=== PATIENT | female | born 1985 | race Caucasian/White ===

== ENCOUNTER 2016-06-27 09:40 | Inpatient (IN) | payer OTHER ==
[~2016-06-27] VITALS: Ht 156 cm; Wt 75.3 kg
[2016-06-27] MEDS ORDERED: RINGERS SOLUTION,LACTATED 1,000 ML IV ONE ×2 (09:41→12:08)
[2016-06-27] MEDS ORDERED: METOCLOPRAMIDE HCL 5 MG/ML 2 ML VIAL IVP ONE (09:45)
[2016-06-27] MEDS ORDERED: CITRIC ACID/SODIUM CITRATE 30 ML SOLUTION UDCUP PO ONE (09:45)
[2016-06-27 10:20] VITALS: BP 127/70
[2016-06-27] MEDS ORDERED: FERR-89 PO (10:24)
[2016-06-27] MEDS ORDERED: PREN1TAB80 PO (10:24)
[2016-06-27] MEDS ORDERED: CALC-51 PO (10:24)
[2016-06-27 10:40] LABS: GLUCOSE,POINT OF CARE 82 MG/DL (70-110)
[2016-06-27 10:43] LABS: BASOPHILS % (AUTO) 0.3 % (0.0-2.0); EOSINOPHILS % (AUTO) 0.5 % (1.0-6.0); HEMATOCRIT 37.2 % (36-46); HEMOGLOBIN 12.6 g/dL (12.0-16.0); LYMPHOCYTES # (AUTO) 1.5 K/uL (1.0-4.8); LYMPHOCYTES % (AUTO) 17.4 % (22.0-44.0); MEAN CORPUSCULAR HEMOGLOBIN 34.4 pg (26.0-34.0); MEAN CORPUSCULAR HGB CONC 33.8 G/dL (31.0-37.0); MEAN CORPUSCULAR VOLUME 102 fL (80-100); MONOCYTES # (AUTO) 0.5 K/uL (0.1-1.0); MONOCYTES % (AUTO) 6.2 % (2.0-9.0); NEUTROPHILS # (AUTO) 6.5 K/uL (1.8-7.7); NEUTROPHILS % (AUTO) 75.6 % (40.0-70.0); PLATELET COUNT (AUTO) 141 K/uL (150-450); RED BLOOD CELL COUNT(AUTO) 3.66 MIL/uL (4.00-5.20); RED CELL DISTRIBUTION WIDTH 13.1 % (11.5-14.5); WHITE BLOOD COUNT (AUTO) 8.7 K/uL (4.5-11.0)
[2016-06-27 10:58] LABS: RBC MORPHOLOGY COMMENT ABNORMAL RBC MORPH
[2016-06-27] MEDS ORDERED: INFLUENZA VIRUS VACCINE QVS 2016-17 (3YR+)/PF 60 MCG/0.5 ML SYRINGE IM ONE (12:00)
[2016-06-27] MEDS ORDERED: CeFAZolin 2 GM/DEXTROSE 50 ML IV ONE (12:07)
[2016-06-27] MEDS ORDERED: FentaNYL CITRATE-PF 100 MCG/2 ML VIAL ONE (12:08)
[2016-06-27] MEDS ORDERED: KETAMINE HCL 50 MG/ML 10 ML VIAL ONE (12:08)
[2016-06-27] MEDS ORDERED: MORPHINE SULFATE/PF 0.5 MG/ML 10 ML AMP ONE (12:08)
[2016-06-27] MEDS ORDERED: ACETAMINOPHEN/CODEINE 300-30 MG TABLET PO PRN ×2 (14:00)
[2016-06-27] MEDS ORDERED: LANOLIN 7 GM OINTMENT TP PRN (14:00)
[2016-06-27] MEDS ORDERED: 0.9% SODIUM CHLORIDE 10 ML VIAL IV ONE (14:23)
[2016-06-27] MEDS ORDERED: OXYTOCIN 10 UNITS/ML VIAL IM ONE (14:23)
[2016-06-27] MEDS ORDERED: PHENYLEPHRINE HCL 10 MG/ML VIAL IVP ONE (14:23)
[2016-06-27] MEDS: DEXTROSE 5%-0.45% SODIUM CHL 1,000 ML IV SCH ×2 (17:51→21:42)
[2016-06-27] MEDS ORDERED: ACETAMINOPHEN 1000 MG/ISO-OSM 100 ML IV PRN (18:15)
[2016-06-27] MEDS ORDERED: DiphenhydrAMINE HCL 50 MG/ML VIAL IVP PRN (18:15)
[2016-06-27] MEDS ORDERED: NALOXONE HCL 0.4 MG/ML VIAL IVP PRN (18:15)
[2016-06-27] MEDS ORDERED: NALBUPHINE HCL 10 MG/ML VIAL IVP PRN ×2 (18:15)
[2016-06-27] MEDS ORDERED: ONDANSETRON HCL 4 MG/2 ML VIAL IVP PRN (18:15)
[2016-06-27] MEDS ORDERED: OXYGEN THERAPY IH SCH ×2 (20:00)
[2016-06-28] MEDS: DEXTROSE 5%-0.45% SODIUM CHL 1,000 ML IV SCH ×2 (01:54→06:31)
[2016-06-28] MEDS: IBUPROFEN 800 MG TABLET PO SCH ×3 (06:35→18:49)
[2016-06-28] MEDS: MAGNESIUM HYDROXIDE SUSPENSION 30 ML UDCUP PO SCH ×2 (09:06→21:22)
[2016-06-29] MEDS: IBUPROFEN 800 MG TABLET PO SCH ×4 (01:01→18:23)
[2016-06-29] MEDS: MAGNESIUM HYDROXIDE SUSPENSION 30 ML UDCUP PO SCH (09:10)
[2016-06-29] MEDS ORDERED: NALBUPHINE HCL 10 MG/ML VIAL ONE (17:48)
[2016-06-30] MEDS: IBUPROFEN 800 MG TABLET PO SCH ×2 (01:08→06:47)
[2016-06-30] MEDS ORDERED: ACET1TAB12 PO (10:13)
[2016-06-30] MEDS ORDERED: IBUP-2070 PO (10:15)
[2016-06-30] MEDS ORDERED: DSS100 PO (10:16)
== END 2016-06-30 13:55 | disposition home or self-care (01) | DRG 766 ==
LOC: OBSVTOIN 09:40 → 4S 09:40
PROVIDERS: ADMIT Obstetrics & Gynecology; ATTEND Obstetrics & Gynecology
PROC: 10D00Z1 Extraction of Products of Conception, Low, Open Approach (ICD-10-PCS; principal; 2016-06-27)
DX: O24.420 Gestational diabetes mellitus in childbirth, diet controlled (principal); Z3A.39 39 weeks gestation of pregnancy; Z37.0 Single live birth; Z28.21 Immunization not carried out because of patient refusal
CPT/HCPCS: 82962; 86850; 86900; 86901; 87081; J0131; J0690; J2274; J2300; J2370; J2590; J2765; J3010; J3490; J7120

== ENCOUNTER 2020-02-06 14:40 | Inpatient (IN) | payer OTHER ==
[~2020-02-06] VITALS: Ht 156 cm; Wt 78.9 kg
[~2020-02-06 14:40] MED LIST: ACET-2080 PO; DSS100 PO; IBUP-2070 PO; PREN1TAB80 PO
[2020-02-06] MEDS ORDERED: RINGERS SOLUTION,LACTATED 1,000 ML IV ONE (15:01)
[2020-02-06] MEDS ORDERED: METOCLOPRAMIDE HCL 5 MG/ML 2 ML VIAL IVP ONE (15:15)
[2020-02-06] MEDS ORDERED: CITRIC ACID/SODIUM CITRATE 30 ML SOLUTION UDCUP PO ONE (15:15)
[2020-02-06 15:47] LABS: BASOPHILS % (AUTO) 0.2 % (0.0-2.0); EOSINOPHILS % (AUTO) 0.4 % (1.0-6.0); HEMATOCRIT 41.3 % (36-46); HEMOGLOBIN 14.1 g/dL (12.0-16.0); LYMPHOCYTES # (AUTO) 1.6 K/uL (1.0-4.8); LYMPHOCYTES % (AUTO) 15.5 % (22.0-44.0); MEAN CORPUSCULAR HEMOGLOBIN 34.4 pg (26.0-34.0); MEAN CORPUSCULAR HGB CONC 34.1 G/dL (31.0-37.0); MEAN CORPUSCULAR VOLUME 101 fL (80-100); MONOCYTES # (AUTO) 0.7 K/uL (0.1-1.0); MONOCYTES % (AUTO) 6.4 % (2.0-9.0); NEUTROPHILS # (AUTO) 7.9 K/uL (1.8-7.7); NEUTROPHILS % (AUTO) 77.5 % (40.0-70.0); PLATELET COUNT (AUTO)-OB 137 K/uL (150-450); RED BLOOD CELL COUNT(AUTO) 4.09 MIL/uL (4.00-5.20); RED CELL DISTRIBUTION WIDTH 13.1 % (11.5-14.5)
[2020-02-06] MEDS ORDERED: FentaNYL CITRATE-PF 100 MCG/2 ML VIAL ONE (15:56)
[2020-02-06] MEDS ORDERED: BUPIVACAINE HCL/DEX-WATER/PF 0.75% 2 ML AMP ONE (15:56)
[2020-02-06] MEDS ORDERED: MORPHINE SULFATE/PF 0.5 MG/ML 10 ML AMP ONE (15:56)
[2020-02-06] MEDS ORDERED: ACETAMINOPHEN 1000 MG/ISO-OSM 100 ML IV ONE (15:56)
[2020-02-06] MEDS ORDERED: DEXAMETHASONE SOD PHOS 4 MG/ML VIAL IVP PRN (16:45)
[2020-02-06] MEDS ORDERED: DiphenhydrAMINE HCL 50 MG/ML VIAL IVP PRN ×2 (16:45→17:00)
[2020-02-06] MEDS ORDERED: ONDANSETRON HCL 4 MG/2 ML VIAL IVP PRN ×2 (16:45→17:00)
[2020-02-06] MEDS ORDERED: MORPHINE SULFATE 10 MG/ML SYRINGE IVP PRN (17:00)
[2020-02-06] MEDS ORDERED: FentaNYL CITRATE-PF 100 MCG/2 ML VIAL IVP PRN (17:00)
[2020-02-06] MEDS ORDERED: NALOXONE HCL 0.4 MG/ML VIAL IVP PRN (17:00)
[2020-02-06] MEDS ORDERED: GUM MASTIC/STORAX/MSAL/ALCOHOL LIQUID 0.67 ML VIAL TP ONE (17:06)
[2020-02-06] MEDS ORDERED: OXYTOCIN 30 UNITS/LACT RINGERS 500 ML IV ONE (17:25)
[2020-02-06] MEDS ORDERED: OxyCODONE HCL/ACETAMINOPHEN 5-325 MG TABLET PO PRN ×2 (17:30)
[2020-02-06] MEDS ORDERED: LANOLIN 7 GM OINTMENT TP PRN (17:30)
[2020-02-06] MEDS: RINGERS SOLUTION,LACTATED 1,000 ML IV SCH (19:45)
[2020-02-06] MEDS ORDERED: OXYGEN THERAPY IH SCH ×3 (20:00)
[2020-02-06] MEDS: MAGNESIUM HYDROXIDE SUSPENSION 30 ML UDCUP PO SCH (21:00)
[2020-02-07] MEDS: ACETAMINOPHEN 1000 MG/ISO-OSM 100 ML IV SCH ×2 (00:31→06:33)
[2020-02-07] MEDS: RINGERS SOLUTION,LACTATED 1,000 ML IV SCH (03:23)
[2020-02-07] MEDS ORDERED: 0.9% SODIUM CHLORIDE 10 ML VIAL IVP ONE (07:03)
[2020-02-07] MEDS ORDERED: EPHEDrine SULFATE 50 MG/ML VIAL IM ONE (07:03)
[2020-02-07] MEDS ORDERED: OXYTOCIN 10 UNITS/ML VIAL IM ONE (07:03)
[2020-02-07 07:20] LABS: BASOPHILS % (AUTO) 0.2 % (0.0-2.0); EOSINOPHILS % (AUTO) 0.4 % (1.0-6.0); HEMATOCRIT 31.3 % (36-46); HEMOGLOBIN 10.9 g/dL (12.0-16.0); LYMPHOCYTES # (AUTO) 1.6 K/uL (1.0-4.8); LYMPHOCYTES % (AUTO) 16.5 % (22.0-44.0); MEAN CORPUSCULAR HGB CONC 34.8 G/dL (31.0-37.0); MEAN CORPUSCULAR VOLUME 101 fL (80-100); MONOCYTES # (AUTO) 0.6 K/uL (0.1-1.0); MONOCYTES % (AUTO) 6.6 % (2.0-9.0); NEUTROPHILS # (AUTO) 7.2 K/uL (1.8-7.7); NEUTROPHILS % (AUTO) 76.3 % (40.0-70.0); RED BLOOD CELL COUNT(AUTO) 3.11 MIL/uL (4.00-5.20); RED CELL DISTRIBUTION WIDTH 13.1 % (11.5-14.5)
[2020-02-07] MEDS: MAGNESIUM HYDROXIDE SUSPENSION 30 ML UDCUP PO SCH ×2 (08:12→22:37)
[2020-02-07 11:32] LABS: PLATELET COUNT (AUTO)-OB 98 K/uL (150-450)
[2020-02-07] MEDS: IBUPROFEN 800 MG TABLET PO PRN ×2 (15:47→22:37)
[2020-02-08 06:54] LABS: HEMATOCRIT 34.8 % (36-46); HEMOGLOBIN 12.2 g/dL (12.0-16.0); MEAN CORPUSCULAR HEMOGLOBIN 35.5 pg (26.0-34.0); MEAN CORPUSCULAR HGB CONC 35.1 G/dL (31.0-37.0); MEAN CORPUSCULAR VOLUME 101 fL (80-100); PLATELET COUNT (AUTO)-OB 141 K/uL (150-450); RED BLOOD CELL COUNT(AUTO) 3.44 MIL/uL (4.00-5.20); RED CELL DISTRIBUTION WIDTH 13.4 % (11.5-14.5)
[2020-02-08 07:52] LABS: BAND NEUTROPHILS % (MANUAL) 1 % (0-5); EOSINOPHILS % (MANUAL) 1 % (1-6); LYMPHOCYTES % (MANUAL) 19 % (22-44); MONOCYTES % (MANUAL) 9 % (2-9); SEGMENTED NEUTROPHILS % 70 % (40-70)
[2020-02-08] MEDS: MAGNESIUM HYDROXIDE SUSPENSION 30 ML UDCUP PO SCH (08:17)
[2020-02-08] MEDS ORDERED: IBUP-2071 PO (10:48)
[2020-02-08] MEDS ORDERED: DOCU-275 PO (10:49)
[2020-02-08] MEDS: IBUPROFEN 800 MG TABLET PO PRN (12:57)
== END 2020-02-08 17:40 | disposition home or self-care (01) | DRG 788 ==
LOC: OBSVTOIN 14:40 → 4S 14:40
PROVIDERS: ADMIT Obstetrics & Gynecology Obstetrics; ATTEND Obstetrics & Gynecology Obstetrics
PROC: 10D00Z1 Extraction of Products of Conception, Low, Open Approach (ICD-10-PCS; principal; 2020-02-06)
DX: O24.429 Gestational diabetes mellitus in childbirth, unspecified control (principal); O34.211 Maternal care for low transverse scar from previous cesarean delivery; O42.90 Premature rupture of membranes, unspecified as to length of time between rupture and onset of labor, unspecified weeks of gestation; Z3A.38 38 weeks gestation of pregnancy; Z37.0 Single live birth
CPT/HCPCS: 85007; 86850; 86900; 86901; 87081; 87426; 99219; J0131; J0690; J2274; J2590; J3010; J3490; J7120